=== PATIENT | female | born 2000 | race American Indian/Alaskan Native ===

== ENCOUNTER 2025-02-07 09:55 | Emergency (ER) | payer MEDICAID ==
[2025-02-07] MEDS ORDERED: Sodium Chloride 0.9% 10 ML Syringe FLUSH PRN (10:35)
[2025-02-07 10:49] LABS: BASOPHILS PERCENT AUTO 0.1 % (0.1-1.3); EOSINOPHILS PERCENT AUTO 0.1 % (0.0-5.4); HEMATOCRIT 29.3 % (34.3-46.0); HEMOGLOBIN 8.1 g/dL (11.2-15.5); IMMATURE GRAN ABSOLUTE AUTO 0.07 K/uL (0.00-0.23); IMMATURE GRAN PERCENT AUTO 0.6 % (0.0-0.7); LYMPHOCYTES ABSOLUTE AUTO 1.15 K/uL (0.8-3.3); LYMPHOCYTES PERCENT AUTO 10.2 % (11.4-47.7); MEAN CORPUSCULAR HEMOGLOBIN 16.9 pg (31.6-35.5); MEAN CORPUSCULAR HGB CONC 27.6 g/dL (31.6-35.5); MONOCYTES ABSOLUTE AUTO 0.69 K/uL (0.20-0.90); MONOCYTES PERCENT AUTO 6.1 % (3.3-12.6); NEUTROPHILS ABSOLUTE AUTO 9.32 K/uL (1.0-7.6); NEUTROPHILS PERCENT AUTO 82.9 % (40.0-78.1); PLATELET COUNT,PLT 263 K/uL (130-375); WHITE BLOOD CELL COUNT,WBC 11.3 K/uL (3.2-11.0)
[2025-02-07 11:11] LABS: BASOPHILS ABSOLUTE AUTO 0.01 K/uL (0.00-0.10); EOSINOPHILS ABSOLUTE AUTO 0.01 K/uL (0.00-0.40)
[2025-02-07 11:30] LABS: A/G RATIO 0.9 (1.2-2.2); ALANINE AMINOTRANSFERASE,ALT 338 U/L (12-78); ALBUMIN 3.1 g/dL (3.4-5.0); ALKALINE PHOSPHATASE 171 U/L (46-116); ASPARTATE AMNIOTRANSFERASE,AST 473 U/L (15-37); BILIRUBIN TOTAL 1.4 mg/dL (0.2-1.0); BLOOD UREA NITROGEN,BUN 13 mg/dL (7-18); CALCIUM 8.7 mg/dL (8.5-10.1); CARBON DIOXIDE,CO2 24 mmol/L (21-32); CHLORIDE,CL 104 mmol/L (100-108); CREATININE 0.5 mg/dL (0.6-1.0); ESTIMATED GFR 136 mL/min (>60); GLUCOSE RANDOM 108 mg/dL (74-106); POTASSIUM,K 4.1 mmol/L (3.6-5.2); PROTEIN TOTAL,TP 6.6 g/dL (6.4-8.2); SODIUM,NA 138 mmol/L (140-148)
[2025-02-07] MEDS: Sodium Chloride 0.9% 80 ML IV SCH (11:30)
[2025-02-07] MEDS: Iopamidol 612 MG/ML 100 ML Bottle IV SCH (11:30)
[2025-02-07 11:34] LABS: ANION GAP 14.1 mmol/L (5.0-14.0)
[2025-02-07 12:32] LABS: APPEARANCE,URINE CLEAR (CLEAR); BILIRUBIN,URINE NEGATIVE (NEGATIVE); COLOR,URINE YELLOW (YELLOW); GLUCOSE,URINE NEGATIVE (NEGATIVE); KETONES,URINE NEGATIVE (NEGATIVE); LEUKOCYTE ESTERASE,URINE NEGATIVE (NEGATIVE); NITRITE,URINE NEGATIVE (NEGATIVE); OCCULT BLOOD,URINE NEGATIVE (NEGATIVE); PH,URINE 6.5 (5.0-8.0); PROTEIN,URINE NEGATIVE (NEGATIVE)
[2025-02-07 12:39] LABS: AMORPHOUS SEDIMENT,URINE RARE; BACTERIA,URINE RARE; EPITHELIAL CELLS,URINE RARE; MUCUS,URINE NOT SEEN; RBC,URINE NOT SEEN (0-5); WBC,URINE NOT SEEN (0-5)
== END 2025-02-07 12:43 | disposition home or self-care (01) ==
LOC: JP.ED 09:55
DX: N83.201 Unspecified ovarian cyst, right side (principal)
CPT/HCPCS: 36415; 74177; 80053; 81001; 83605; 83690; 84703; 85025; 99284; Q9967

== ENCOUNTER 2025-02-17 14:23 | Emergency (ER) | payer MEDICAID ==
[2025-02-17] MEDS: Famotidine 20 MG Tab PO ONE (15:35)
[2025-02-17] MEDS: Alum Hydrox/Mag Hydrox/Simeth 15 ML, Lidocaine 2% 15 ML PO ONE (15:35)
[2025-02-17 15:39] LABS: BASOPHILS ABSOLUTE AUTO 0.03 K/uL (0.00-0.10); BASOPHILS PERCENT AUTO 0.3 % (0.1-1.3); HEMATOCRIT 29.9 % (34.3-46.0); HEMOGLOBIN 8.5 g/dL (11.2-15.5); IMMATURE GRAN ABSOLUTE AUTO 0.04 K/uL (0.00-0.23); IMMATURE GRAN PERCENT AUTO 0.4 % (0.0-0.7); LYMPHOCYTES ABSOLUTE AUTO 0.96 K/uL (0.8-3.3); LYMPHOCYTES PERCENT AUTO 9.2 % (11.4-47.7); MEAN CORPUSCULAR HGB CONC 28.4 g/dL (31.6-35.5); MEAN CORPUSCULAR VOLUME 59.9 fL (81.4-99.0); MONOCYTES ABSOLUTE AUTO 0.71 K/uL (0.20-0.90); MONOCYTES PERCENT AUTO 6.8 % (3.3-12.6); NEUTROPHILS PERCENT AUTO 83.3 % (40.0-78.1); PLATELET COUNT,PLT 335 K/uL (130-375); WHITE BLOOD CELL COUNT,WBC 10.4 K/uL (3.2-11.0)
[2025-02-17 15:59] LABS: RED BLOOD CELL COUNT 4.99 M/uL (3.77-5.24)
[2025-02-17 16:04] LABS: C-REACTIVE PROTEIN 0.72 mg/dL (<0.50)
[2025-02-17 16:05] LABS: TROPONIN I HIGH SENSITIVITY < 4.0 pg/mL (<=60.3)
[2025-02-17 16:13] LABS: ALANINE AMINOTRANSFERASE,ALT 352 U/L (12-78); ALBUMIN 3.5 g/dL (3.4-5.0); ALKALINE PHOSPHATASE 224 U/L (46-116); ANION GAP 12.4 mmol/L (5.0-14.0); ASPARTATE AMNIOTRANSFERASE,AST 392 U/L (15-37); BILIRUBIN TOTAL 1.6 mg/dL (0.2-1.0); BLOOD UREA NITROGEN,BUN 18 mg/dL (7-18); CALCIUM 9.2 mg/dL (8.5-10.1); CARBON DIOXIDE,CO2 26 mmol/L (21-32); CHLORIDE,CL 103 mmol/L (100-108); CREATININE 0.5 mg/dL (0.6-1.0); ESTIMATED GFR 136 mL/min (>60); GLUCOSE RANDOM 96 mg/dL (74-106); POTASSIUM,K 3.6 mmol/L (3.6-5.2); PROTEIN TOTAL,TP 7.2 g/dL (6.4-8.2); SODIUM,NA 141 mmol/L (140-148)
== END 2025-02-17 16:37 | disposition home or self-care (01) ==
LOC: JP.ED 14:23
DX: K29.00 Acute gastritis without bleeding (principal); R94.5 Abnormal results of liver function studies
CPT/HCPCS: 36415; 80053; 83605; 83690; 84484; 85025; 85379; 86140; 93005; 93010; 99283; 99284; A9270-GY